=== PATIENT | male | born 1955 | race American Indian/Alaskan Native ===

== ENCOUNTER 2018-03-16 10:48 | Emergency (ER) | payer OTHER ==
[2018-03-16] MEDS ORDERED: XYLOCAINE 1% MPF 5 mL INFILTRATI ONE (13:00)
[2018-03-16] MEDS ORDERED: ZOFRAN ODT PO ONE (13:00)
[2018-03-16] MEDS ORDERED: ZITHROMAX PO ONE (13:00)
[2018-03-16] MEDS ORDERED: ROCEPHIN IM ONE (13:00)
[2018-03-16] MEDS ORDERED: FLAGYL PO ONE (13:01)
--- NOTE | 2018-03-16 13:05 | Emergency Department Report ---
ED General Adult HPI - General Chief complaint: Urogenital-Male Stated complaint: ABD PAIN Time Seen by Provider: 03/16/18 13:00 Source: patient Mode of arrival: Ambulatory Limitations: No Limitations - History of Present Illness Initial comments: Patient reports that an ex-girlfriend told him that she had Trichomonas. Patient presents for treatment of possible STD. Denies dysuria fever nausea vomiting. Reports suprapubic abdominal pain intermittent since speaking with his ex-girlfriend. Denies testicular pain or swelling. Denies discharge or rash. Associated Symptoms: denies other symptoms Treatments Prior to Arrival: none - Related Data Allergies Allergy/AdvReac Type Severity Reaction Status Date / Time No Known Allergies Allergy Unverified 03/16/18 11:09 ED Review of Systems ROS: Stated complaint: ABD PAIN Other details as noted in HPI Comment: All other systems reviewed and negative ED Past Medical Hx - Past Medical History Previous Medical History?: No - Surgical History Past Surgical History?: No ED Physical Exam - General Limitations: No Limitations - Other Other exam information: GENERAL: Patient in no acute distress HEAD: Normocephalic, atraumatic ABDOMEN: Normal bowel sounds, no tenderness, no rebound, no guarding, no masses , no CVA tenderness MUSCULOSKELETAL: Normal joint range of motion, no redness, no swelling, no tenderness NEUROLOGIC: GCS 15, Alert and Oriented x3, Cranial nerves intact, normal sensation, normal strength, normal gait, no cerebellar deficit SKIN: Skin is warm and dry, no wounds, no rashes ED Course Vital Signs 03/16/18 11:10 Temperature 98.7 F Pulse Rate 72 Respiratory 16 Rate Blood Pressure 139/94 O2 Sat by Pulse 100 Oximetry ED Medical Decision Making - Medical Decision Making Patient comfortable. Plan discharge with outpatient follow up. Patient agrees with plan and will return if symptoms worsen. Agrees to follow up with the health department for further evaluation. Critical care attestation.: If time is entered above; I have spent that time in minutes in the direct care of this critically ill patient, excluding procedure time. ED Disposition Clinical Impression: STD exposure Disposition: DC-01 TO HOME OR SELFCARE Is pt being admited?: No Condition: Stable Instructions: Safe Sex (ED), Sexually Transmitted Diseases (ED) Referrals: PRIMARY CARE, [Primary Care Provider] - 2-3 Days [facility]Outside[facility] Time of Disposition: 13:04
[2018-03-16 13:39] VITALS: BP 128/76
== END 2018-03-16 13:39 | disposition home or self-care (01) ==
LOC: ED 10:48
DX: R10.30 Lower abdominal pain, unspecified (principal)
CPT/HCPCS: 96372; 99282; J0696; Q0162